=== PATIENT | male | born 1955 | race Caucasian/White ===

== ENCOUNTER → 2016-07-15 | Outpatient (CLI) | payer BC, OTHER | LOC: FCPNEURO 21:00 | PROVIDERS: ATTEND Internal Medicine Sleep Medicine | DX: G47.31 Primary central sleep apnea (principal) ==

== ENCOUNTER → 2016-09-13 | Outpatient (CLI) | payer BC, OTHER | LOC: FCPNEURO 21:00 | PROVIDERS: ATTEND Internal Medicine Sleep Medicine | DX: G47.31 Primary central sleep apnea (principal); G47.33 Obstructive sleep apnea (adult) (pediatric) ==

== ENCOUNTER → 2017-04-08 | Outpatient (CLI) | payer OTHER ==
[~2017-04-08] MED LIST: IOPAMIDOL (ISOVUE 370) 100 ML BTL IV ONE
== END ==
LOC: FIMAGING 13:28
PROVIDERS: ATTEND Family Medicine
DX: I26.99 Other pulmonary embolism without acute cor pulmonale (principal); J98.4 Other disorders of lung
CPT/HCPCS: Q9967

== ENCOUNTER 2017-08-15 14:55 | Emergency (ER) | payer OTHER ==
--- NOTE | 2017-08-15 15:25 | EDPHY ---
General Time Seen by Provider: 08/15/17 15:11 Narrative: CHIEF COMPLAINT: The calf pain, worried about DVT HISTORY OF PRESENT ILLNESS: Patient presents with complaints of right calf pain. This started within the past 24 hr. It is mild to moderate. No worse with exertion. His concern is that it feels the same as when he had a DVT in the same lower extremity in March. No numbness or tingling. No weakness. No warmth or swelling. No for chills. No chest pain or shortness of breath. He had extensive DVT in right lower extremity with bilateral subsegmental PEs in March, for which she still is taking Eliquis. REVIEW OF SYSTEMS: Ten systems reviewed and are negative unless otherwise noted in the HPI PCP: Dr. Yanick Carmen SPECIALISTS: [facility] PAST MEDICAL HISTORY: DVT, bilateral PEs PAST SURGICAL HISTORY: No recent surgeries. TURP procedure in March SOCIAL HISTORY: Never smoker. Lives here independently with his spouse. Works at [employer] FAMILY HISTORY: Noncontributory EXAMINATION General Appearance: Alert, no distress Head: normocephalic, atraumatic Eyes: Pupils equal and round, no conjunctival pallor or injection Cardiovascular: Regular rate. Symmetric DP PT pulses 2+. Neurological: A&O, nonfocal. Strength is symmetric in lower extremities. No footdrop. Skin: Warm and dry, no rash. No petechiae. No purpura. No cellulitis. Extremities: Mild tenderness in the right posterior lower extremity involving the calf only. There is no bony tenderness or lower extremity. Range of motion of the lower extremities symmetric. Good signs of perfusion with soft compartments in all aspects of the right lower extremity. No evidence of DVT. No evidence hematoma. Psychiatric: Mood and affect normal DIFFERENTIAL DIAGNOSES: Including but not limited to DVT, strain, sprain, hematoma, rhabdo MDM: 3:15 p.m. Right lower extremity pain in the calf with concern for DVT from the patient's spouse. Low clinical suspicion for DVT by history, exam and history of Eliquis use. He is neuro intact distally. I do not appreciate any skin changes. I have ordered a DVT study and laboratory studies. 3:30 p.m. dye lab technician is at bedside. 4:15 p.m. Notified by radiologist Dr. Carlos Reid. He reports a negative DVT study of the right lower extremity. I have re-evaluated the patient reassured of this. There are laboratory studies pending but he has no complaints this time. 5:00 p.m. Lab studies reveal mild leukocytopenia without any abnormal components otherwise. Is DVT study is negative. We discussed possibility of other etiologies, and he is reassured there is no DVT. We discussed follow up primary care physician for further workup. They are comfortable this plan and discharged home stable condition. SUPERVISION: Patient was independently examined, but I discussed the case with my secondary supervising physician Dr. Sims - History Smoking Status: Never smoked - Objective Vital Signs: Initial Vital Signs Temperature (C) 98.1 F 08/15/17 14:59 Heart Rate 54 L 08/15/17 14:59 Respiratory Rate 16 08/15/17 14:59 Blood Pressure 107/55 L 08/15/17 14:59 O2 Sat (%) 96 08/15/17 14:59 O2 Delivery Mode Room Air Allergies/Adverse Reactions: levofloxacin [From Levaquin] Allergy (Verified 08/15/17 15:00) Home Medications: Medication Instructions Recorded Armorthyroid 08/15/17 Eliquis 08/15/17 Laboratory Results: Laboratory Results 08/15/17 16:14 08/15/17 16:14 Departure - Departure Disposition: Home, Routine, Self-Care Clinical Impression: Right calf pain Condition: Good Instructions: Leg Pain (ED) Additional Instructions: 1. Contact primary care physician for outpatient care 2. Return here for any worsening pain, redness, warmth, swelling, chest pain or shortness of breath Referrals: YANICK CARMEN [Primary Care Provider] - As per Instructions
[2017-08-15 16:45] LABS: INR 1.16 (0.83-1.16)
[2017-08-15 16:53] LABS: CREATINE KINASE 43 IU/L (0-224)
[2017-08-15 17:18] VITALS: BP 121/67
== END 2017-08-15 17:05 | disposition home or self-care (01) ==
DX: M79.661 Pain in right lower leg (principal)

== ENCOUNTER 2018-01-12 13:08 | Observation (INO) | payer OTHER ==
--- NOTE | 2018-01-12 13:23 | EDPHY ---
HPI/HX/ROS/PE/MDM Narrative: CHIEF COMPLAINT: Chest pain HISTORY OF PRESENT ILLNESS: The patient is an anticoagulated 62 y/o male with a history of DVTs, PE, chronic congenital pancreatitis complaining of intermittent left-sided chest pain for the last two-three days. He has ongoing abdominal pain due to his pancreatitis that can present in different areas of his body including his chest. However, he describes this pain as different from his normal pain. Pain is "sore" and "tight" in quality across his left chest, non-radiating, and 6/10 in severity currently. He cannot identify obvious aggravating or alleviating factors. He also feels nauseated, has low energy, and experiences random occasional shortness of breath; he is unable to say if these symptoms have worsened since noticing this chest pain. He tends to feel diaphoretic at baseline. He had a stress test several years ago that was normal and says he is scheduled for another one next week. He had a prior catheterization that found "nothing they thought would cause issues," though he mentions possible valve problems. He denies history of hypertension, diabetes, hyperlipidemia, pleural effusions, pulmonary hypertension, or family history of heart disease at a young age. He did receive a flu vaccination this season. No fever, chills, chest pain, palpitations, vomiting, diarrhea, urinary complaints, headache, lightheadedness. REVIEW OF SYSTEMS: Aside from elements discussed in the HPI, a comprehensive 10-point review of systems was reviewed and is negative. PAST MEDICAL HISTORY: 1. DVTs, PEs with persistently high d-dimer - Eliquis 2. Congenital pancreatitis with chronic abdominal pain - no medications for this 3. SVT post ablation in [place] 4. Heart catheterization - possible valve issues detected SOCIAL HISTORY: Never smoker. Lives in [place]. . Employed. Prior medical records reviewed including ED visit 08/15/17 for possible DVT. VITAL SIGNS: Reviewed by me GENERAL: Well-developed, well-nourished, resting comfortably in no respiratory distress. HEENT: Atraumatic. Eyes: No icterus, no injection. Mouth: moist mucous membranes. No erythema or lesions. Neck: supple with no adenopathy. LUNGS: Clear to auscultation bilaterally, no wheezes, rhonchi or rales. CARDIAC: Regular rate and rhythm, no rubs, murmurs or gallops. ABDOMEN: Soft, nontender, nondistended, bowel sounds normal. BACK: No CVA tenderness. Mildly diaphoretic on back. EXTREMITIES: No trauma. No edema. Range of motion is normal throughout. NEURO: Alert and oriented, grossly nonfocal. SKIN: Warm and dry, no rash. PSYCHIATRIC: Normal mentation, no agitation. Portions of this note were transcribed by a medical insurance claims processor. I personally performed a history, physical exam, medical decision making, and confirmed accuracy of information the transcribed note. ED Course: This is an anticoagulated 62 y/o male with a history of DVTs, PEs, and chronic pancreatitis who presents with a [id number] history of intermittent left- sided chest pain. Exam is unremarkable apart from mild diaphoresis on back. Plan for standard chest pain work up including IV, labs, EKG, chest x-ray. 4mg IV Zofran and 324mg PO aspirin ordered. The 12 lead EKG was interpreted by myself. Sinus mechanism. See hard copy and/ or "tracemaster" electronic copy for interpretation. D-dimer elevated at 0.86. Plan for chest CTA and abdominal CT with contrast to evaluate for PE and look at pancreas. CTs are negative for acute findings. Spoke with hospitalist service. Dr. Espinosa accepts admission. Reassessed patient and discussed findings. [facility] records accessed via [employer] showed VQ scan, chest CTA, and echocardiogram, but no recent stress test. I recommended admission for this stress test, but he is reluctant to do so. I discussed the risks of leaving and not ruling out cardiac etiology. He will call his and then make a decision. After discussions with the , the patient has elected to be admitted to the hospital. MDM: After history and physical examination, the differential for chest pain was considered, including but not limited to, myocardial ischemia, acute coronary syndrome, pulmonary embolus, chest wall pain, gastric causes, constipation, pleural effusion, pleural inflammation and pulmonary infectious causes. - Data Points Imaging Results: Imaging Impressions Chest X-Ray 01/12/18 13:24 Impression: Possible airways disease. Otherwise negative. Abdomen CT 01/12/18 14:12 Impression: 1. No evidence of abdominopelvic inflammatory mass or ascites. Nayana Corrales was notified of these findings at 3:15 PM on 01/12/2018. Chest/Thorax CTA 01/12/18 14:12 Impression: 1. No evidence of acute pulmonary embolism or thoracic aortic dissection. Previously seen subsegmental pulmonary emboli have resolved. 2. Coronary artery calcification. Nayana Corrales was notified of these findings by telephone at 3:00 PM on 2017 Imaging: Discussed imaging studies w/ call or contact centre team leader Radiologist, I viewed and interpreted images myself Laboratory Results: Laboratory Results 01/12/18 13:15 01/12/18 13:15 01/12/18 01/12/18 01/12/18 13:19 13:15 13:15 WBC RBC Hgb Hct MCV MCH MCHC RDW Plt Count MPV Neut % (Auto) Lymph % (Auto) [place] % (Auto) Eos % (Auto) Baso % (Auto) Nucleat RBC Rel Count Absolute Neuts (auto) Absolute Lymphs (auto) Absolute Monos (auto) Absolute Eos (auto) Absolute Basos (auto) Absolute Nucleated RBC Immature Gran % Immature Gran # PT 14.5 SEC SEC (12.0-15.0) INR 1.11 (0.83-1.16) APTT 33.6 SEC SEC (23.0-38.0) D-Dimer 0.86 ug/mLFEU H ug/mLFEU (0.00-0.50) Sodium 139 mEq/L mEq/L (135-145) Potassium 4.5 mEq/L mEq/L (3.3-5.0) Chloride 100 mEq/L mEq/L (97-110) Carbon Dioxide 31 mEq/l mEq/l (22-31) Anion Gap 8 mEq/L mEq/L (6-14) BUN 22 mg/dL mg/dL (7-23) Creatinine 1.2 mg/dL mg/dL (0.7-1.3) Estimated GFR > 60 Glucose 77 mg/dL mg/dL (70-100) Calcium 9.4 mg/dL mg/dL (8.5-10.4) Total Bilirubin 0.5 mg/dL mg/dL (0.1-1.4) Conjugated Bilirubin 0.1 mg/dL mg/dL (0.0-0.5) Unconjugated Bilirubin 0.4 mg/dL mg/dL (0.0-1.1) AST 33 IU/L IU/L (17-59) ALT 47 IU/L IU/L (21-72) Alkaline Phosphatase 89 IU/L IU/L (38-126) POC Troponin I 0.00 ng/mL ng/mL (0.00-0.08) Total Protein 7.3 g/dL g/dL (6.3-8.2) Albumin 4.3 g/dL g/dL (3.5-5.0) Lipase 441 IU/L H IU/L (23-300) 01/12/18 13:15 WBC 3.38 10^3/uL L 10^3/uL (3.80-9.50) RBC 5.06 10^6/uL 10^6/uL (4.40-6.38) Hgb 16.2 g/dL g/dL (13.7-17.5) Hct 47.2 % % (40.0-51.0) MCV 93.3 fL fL (81.5-99.8) MCH 32.0 pg pg (27.9-34.1) MCHC 34.3 g/dL g/dL (32.4-36.7) RDW 12.5 % % (11.5-15.2) Plt Count 152 10^3/uL 10^3/uL (150-400) MPV 10.3 fL fL (8.7-11.7) Neut % (Auto) 60.6 % % (39.3-74.2) Lymph % (Auto) 24.3 % % (15.0-45.0) [place] % (Auto) 11.8 % % (4.5-13.0) Eos % (Auto) 2.4 % % (0.6-7.6) Baso % (Auto) 0.6 % % (0.3-1.7) Nucleat RBC Rel Count 0.0 % % (0.0-0.2) Absolute Neuts (auto) 2.05 10^3/uL 10^3/uL (1.70-6.50) Absolute Lymphs (auto) 0.82 10^3/uL L 10^3/uL (1.00-3.00) Absolute Monos (auto) 0.40 10^3/uL 10^3/uL (0.30-0.80) Absolute Eos (auto) 0.08 10^3/uL 10^3/uL (0.03-0.40) Absolute Basos (auto) 0.02 10^3/uL 10^3/uL (0.02-0.10) Absolute Nucleated RBC 0.00 10^3/uL 10^3/uL (0-0.01) Immature Gran % 0.3 % % (0.0-1.1) Immature Gran # 0.01 10^3/uL 10^3/uL (0.00-0.10) PT INR APTT D-Dimer Sodium Potassium Chloride Carbon Dioxide Anion Gap BUN Creatinine Estimated GFR Glucose Calcium Total Bilirubin Conjugated Bilirubin Unconjugated Bilirubin AST ALT Alkaline Phosphatase POC Troponin I Total Protein Albumin Lipase Medications Given: Discontinued Medications Aspirin (Aspirin) 324 mg PO EDNOW ONE Stop: 01/12/18 13:25 Last Admin: 01/12/18 13:29 Dose: 324 mg Ondansetron HCl (Zofran) 4 mg IVP EDNOW ONE Stop: 01/12/18 13:25 Last Admin: 01/12/18 13:30 Dose: 4 mg Point of Care Test Results: Chemistry 01/12/18 13:19 POC Troponin I 0.00 ng/mL ng/mL (0.00-0.08) General Initial Vital Signs: Initial Vital Signs Temperature (C) 36.7 C 01/12/18 13:11 Heart Rate 70 01/12/18 13:11 Respiratory Rate 16 01/12/18 13:11 Blood Pressure 145/81 H 01/12/18 13:11 O2 Sat (%) 96 01/12/18 13:11 O2 Delivery Mode Room Air Allergies/Adverse Reactions: lactose Allergy (Mild, Verified 01/12/18 16:10) levofloxacin [From Levaquin] Allergy (Verified 08/15/17 15:00) Home Medications: Medication Instructions Recorded Apixaban [Eliquis] 5 mg PO BID 01/12/18 Herbals/Supplements -Info Only 1 ea PO BID 01/12/18 Thyroid [[place] Thyroid 60 MG (*)] 60 mg PO DAILY10 01/12/18 Departure - Departure Disposition: [facility] Clinical Impression: Chest pain Qualifiers: Chest pain type: other chest pain Qualified Code(s): R07.89 - Other chest pain Condition: Fair Report Scribed for: Nayana Corrales Report Scribed by: Marylou Estrella Date of Report: 01/12/18 Time of Report: 13:53
[2018-01-12] MEDS ORDERED: ASPIRIN 81 MG CHEWABLE TAB PO ONE (13:24)
[2018-01-12] MEDS ORDERED: ONDANSETRON 4 MG/2 ML VIAL IVP ONE (13:24)
[2018-01-12 13:42] LABS: PLATELET COUNT 152 10^3/uL (150-400)
[2018-01-12 13:59] LABS: INR 1.11 (0.83-1.16); PROTIME(PATIENT) 14.5 SEC (12.0-15.0)
[2018-01-12] MEDS ORDERED: IOPAMIDOL (ISOVUE 370) 100 ML BTL IV ONE (14:23)
[2018-01-12] MEDS ORDERED: oxyCODONE IR 5 MG TAB PO PRN (16:15)
[2018-01-12] MEDS ORDERED: ACETAMINOPHEN 325 MG TAB PO PRN (16:15)
[2018-01-12] MEDS ORDERED: ONDANSETRON 4 MG/2 ML VIAL IVP PRN (16:15)
[2018-01-12] MEDS ORDERED: PROMETHAZINE HCL 25 MG/ML INJ IVP PRN (16:15)
[2018-01-12] MEDS ORDERED: HYDROCODONE/APAP 5/325 TAB PO PRN (16:15)
[2018-01-12] MEDS ORDERED: ONDANSETRON DISINTEGRATING 4 MG TAB PO PRN (16:15)
[2018-01-12] MEDS ORDERED: ALBUTEROL 3 ML DEYVIAL IH PRN (16:15)
[2018-01-12] MEDS ORDERED: NITROGLYCERIN 0.4 MG BTL SL PRN (16:15)
--- NOTE | 2018-01-12 17:35 | PDGENHP ---
History and Physical - Chief Complaint chest pain - History of Present Illness 62 yo M with PMH that includes chronic congenital pancreatitis as well as relatively recent dx of DVT/PE presenting with complaints of several days of left sided chest pain. Patient notes that when he gets bouts of pancreatitis he will often have pain in other places besides his abdomen but that it is not generally like this. He notes that he has seen his PCP for this and is scheduled for a stress test at [facility] next week, he states that there was some discussion of a heart catheterization but decision was made to start with stress test. He notes he has had increased fatigue and intermittent sob as well. He currently notes that the pain is still present but very mild, located over his left pectoral region and achy. He did have a workup at [facility] in mid November at which time a VQ scan, chest CTA and echocardiogram were performed. History Information - Allergies/Home Medication List Allergies/Adverse Reactions: lactose Allergy (Mild, Verified 01/12/18 16:10) levofloxacin [From Levaquin] Allergy (Verified 08/15/17 15:00) Home Medications: Apixaban [Eliquis] 5 mg PO BID 01/12/18 [Last Taken 01/12/18 AM DOSE ONLY] Herbals/Supplements -Info Only 1 ea PO BID 01/12/18 [Last Taken 01/12/18 am only ] Thyroid [[place] Thyroid 60 MG (*)] 60 mg PO DAILY10 01/12/18 [Last Taken ] I have personally reviewed and updated: family history, medical history, social history, surgical history - Past Medical History DVT, pulmonary embolism, SVT Additional medical history: chronic congential pancreatitis - Surgical History Reports: no pertinent surgical hx - Family History Positive for: non-pertinent - Social History Smoking Status: Never smoked Alcohol Use: Rarely Drug Use: None Review of Systems Review of Systems: ROS: 10pt was reviewed & negative except for what was stated in HPI & below Physical Exam Physical Exam: Temp Pulse Resp BP Pulse Ox 36.5 C 53 L 18 113/76 97 01/12/18 16:15 01/12/18 16:15 01/12/18 16:15 01/12/18 16:15 01/12/18 16:15 Constitutional: no apparent distress, appears nourished Eyes: PERRL, anicteric sclera Ears, Nose, Mouth, Throat: moist mucous membranes, hearing normal Cardiovascular: regular rate and rhythym, no murmur, rub, or gallop, No edema Respiratory: no respiratory distress, no rales or rhonchi, clear to auscultation Gastrointestinal: normoactive bowel sounds, soft, non-tender abdomen, no palpable masses Genitourinary: no bladder tenderness Skin: warm, normal color Musculoskeletal: full muscle strength, no muscle tenderness Neurologic: AAOx3 Psychiatric: interacting appropriately, not anxious, not encephalopathic Lab Data & Imaging Review 01/12/18 13:15 01/12/18 13:15 WBC 3.38 10^3/uL (3.80-9.50) L 01/12/18 13:15 RBC 5.06 10^6/uL (4.40-6.38) 01/12/18 13:15 Hgb 16.2 g/dL (13.7-17.5) 01/12/18 13:15 Hct 47.2 % (40.0-51.0) 01/12/18 13:15 MCV 93.3 fL (81.5-99.8) 01/12/18 13:15 MCH 32.0 pg (27.9-34.1) 01/12/18 13:15 MCHC 34.3 g/dL (32.4-36.7) 01/12/18 13:15 RDW 12.5 % (11.5-15.2) 01/12/18 13:15 Plt Count 152 10^3/uL (150-400) 01/12/18 13:15 MPV 10.3 fL (8.7-11.7) 01/12/18 13:15 Neut % (Auto) 60.6 % (39.3-74.2) 01/12/18 13:15 Lymph % (Auto) 24.3 % (15.0-45.0) 01/12/18 13:15 [place] % (Auto) 11.8 % (4.5-13.0) 01/12/18 13:15 Eos % (Auto) 2.4 % (0.6-7.6) 01/12/18 13:15 Baso % (Auto) 0.6 % (0.3-1.7) 01/12/18 13:15 Nucleat RBC Rel Count 0.0 % (0.0-0.2) 01/12/18 13:15 Absolute Neuts (auto) 2.05 10^3/uL (1.70-6.50) 01/12/18 13:15 Absolute Lymphs (auto) 0.82 10^3/uL (1.00-3.00) L 01/12/18 13:15 Absolute Monos (auto) 0.40 10^3/uL (0.30-0.80) 01/12/18 13:15 Absolute Eos (auto) 0.08 10^3/uL (0.03-0.40) 01/12/18 13:15 Absolute Basos (auto) 0.02 10^3/uL (0.02-0.10) 01/12/18 13:15 Absolute Nucleated RBC 0.00 10^3/uL (0-0.01) 01/12/18 13:15 Immature Gran % 0.3 % (0.0-1.1) 01/12/18 13:15 Immature Gran # 0.01 10^3/uL (0.00-0.10) 01/12/18 13:15 PT 14.5 SEC (12.0-15.0) 01/12/18 13:15 INR 1.11 (0.83-1.16) 01/12/18 13:15 APTT 33.6 SEC (23.0-38.0) 01/12/18 13:15 D-Dimer 0.86 ug/mLFEU (0.00-0.50) H 01/12/18 13:15 Sodium 139 mEq/L (135-145) 01/12/18 13:15 Potassium 4.5 mEq/L (3.3-5.0) 01/12/18 13:15 Chloride 100 mEq/L (97-110) 01/12/18 13:15 Carbon Dioxide 31 mEq/l (22-31) 01/12/18 13:15 Anion Gap 8 mEq/L (6-14) 01/12/18 13:15 BUN 22 mg/dL (7-23) 01/12/18 13:15 Creatinine 1.2 mg/dL (0.7-1.3) 01/12/18 13:15 Estimated GFR > 60 01/12/18 13:15 Glucose 77 mg/dL (70-100) 01/12/18 13:15 Calcium 9.4 mg/dL (8.5-10.4) 01/12/18 13:15 Total Bilirubin 0.5 mg/dL (0.1-1.4) 01/12/18 13:15 Conjugated Bilirubin 0.1 mg/dL (0.0-0.5) 01/12/18 13:15 Unconjugated Bilirubin 0.4 mg/dL (0.0-1.1) 01/12/18 13:15 AST 33 IU/L (17-59) 01/12/18 13:15 ALT 47 IU/L (21-72) 01/12/18 13:15 Alkaline Phosphatase 89 IU/L (38-126) 01/12/18 13:15 POC Troponin I 0.00 ng/mL (0.00-0.08) 01/12/18 13:19 Total Protein 7.3 g/dL (6.3-8.2) 01/12/18 13:15 Albumin 4.3 g/dL (3.5-5.0) 01/12/18 13:15 Lipase 441 IU/L (23-300) H 01/12/18 13:15 Visualized and Interpreted Chest x-ray results: Yes Chest X-Ray results: no infiltrate Visualized and Interpreted imaging results: Yes Interpretation: chest CTA: no PE, no dissection, coronary artery calcifications Visualized and Interpreted EKG results: Yes EKG Interpretation: Positive for: normal sinsus rhythm Assessment & Plan Assessment: Chest pain (Acute) 62 yo M with PMH of chronic pancreatitis presenting with chest pain # chest pain: with heart score of 2 and atypical history however patient with recurrent issues that have been difficult to distinguish from his chronic pancreatitis. He has a stress test scheduled at [facility] for next week but will plan to proceed with that in house in the morning so long as overnight w/u including tele monitoring, serial trop and serial ecg remain normal. # chronic pancreatitis: due to congenital abnormality reportedly, currently has a lipase of 440 and with hx of chronic pancreatitis this could be sign of an acute on chronic flare although patient notes that his current sxs are different than his usual sxs. Abd CT performed and comments that the pancreas appears normal, no comment on calcifications. # DVT/PE: remains on anticoagulation currently, CTA performed today showing no new PE and resolution of prior subsegmental PE # observation status Patient new to my care. Care plan reviewed with ER doctor including plans for stress test. Old records reviewed including records from [facility] on [address].
--- NOTE | 2018-01-12 19:56 | CPEKG ---
Test Reason : OPEN Blood Pressure : / mmHG Vent. Rate : 066 BPM Atrial Rate : 066 BPM P-R Int : 148 ms QRS Dur : 101 ms QT Int : 401 ms P-R-T Axes : 069 050 054 degrees QTc Int : 421 ms Sinus rhythm Confirmed by Nayana Corrales ([id number]) on 01/12/2018 7:55:29 PM Referred By: Confirmed By:Nayana Corrales
[2018-01-12] MEDS: APIXABAN 5 MG TAB PO SCH (20:30)
--- NOTE | 2018-01-13 06:31 | CPEKG ---
Test Reason : OPEN Blood Pressure : / mmHG Vent. Rate : 060 BPM Atrial Rate : 060 BPM P-R Int : 155 ms QRS Dur : 097 ms QT Int : 418 ms P-R-T Axes : 076 053 052 degrees QTc Int : 418 ms Sinus rhythm Confirmed by Christina Pablo ([id number]) on 01/13/2018 6:30:53 AM Referred By: Confirmed By:Christina Pablo
[2018-01-13] MEDS: APIXABAN 5 MG TAB PO SCH (08:32)
[2018-01-13] MEDS ORDERED: REGADENOSON 0.4 MG/5 ML SYR IVP ONE (08:57)
[2018-01-13] MEDS ORDERED: ASPIRIN 325 MG TAB PO SCH (09:00)
[2018-01-13] MEDS ORDERED: THYROID 60 MG TAB PO SCH (10:00)
[2018-01-13 11:45] VITALS: BP 115/69
--- NOTE | 2018-01-13 13:02 | PDDCSUM ---
Discharge Summary Discharge Summary: Date of Admission: 01/12/2018 Date of Discharge: 01/13/2018 Studies: 1. Exercise stress with MPI 2. CTA chest 3. CT abdomen/pelvis Discharge Diagnoses: 1. Non-cardiac chest pain 2. History of pancreatic divisum, mildly elevated lipase 3. History of DVT/PE on anticoagulation 4. Hypothyroidism Brief Hospital Course: 62 yo M with PMH of pancreatic divisum and chronic pancreatitis (per his report ) presents with episode of atypical chest pain. Ruled out for ACS and underwent exercise stress test with MPI which was completely normal. Given his past history, a CTA of his chest was also obtained which was negative for acute PE; additionally his prior PE appears to have resolved. His chest pain was likely GI related. In terms of his chronic pancreas issues, his lipase was mildly elevated at 441 however he had no pancreatic inflammation or signs of chronic pancreatitis on CT. Clinically, he did not have pancreatitis and was tolerating PO without difficulty. His apixaban was continued for his DVT/PE history, which occurred 03/2017 and may have been provoked in setting of surgery. Will defer to his primary providers re: duration of anticoagulation. Medications: Please refer to EMR for complete list. No changes were made this admission. Follow Up Plan: 1. Follow up with PCP and balance wheel facer at [facility] Physical Exam: Vitals and telemetry reviewed, normotensive and without arrhythmia. Alert and oriented, RRR without m/r/g, lungs clear, abdomen soft, no leg edema or JVD.
--- NOTE | 2018-01-13 13:50 | ASDISCHSUM ---
Discharge Information Plan Status:Home with No Needs Medically Cleared to Leave: Discharge Date:01/13/2018 01:49 PM CM D/C Disposition:Home, Routine, Self-Care ADT D/C Disposition:Home, Routine, Self-Care Projected Discharge Date:01/13/2018 01:49 PM Transportation at D/C:Family Discharge Delay Reason: Follow-Up Date:01/13/2018 01:49 PM Discharge Slot: Final Diagnosis: Placement Information Patient Contact Information Contact Name:LEYLA Relationship: Address:[address] [place] Work Phone: Jose Alfredo:[place] Quick Phone: [facility]/Zip Code:[place] [phone] Email: Financial Information Financial Class:BCOP Primary Plan Desc:[employer] SMITH PPO Primary Plan Number:[id number] Secondary Plan Desc: Secondary Plan Number: Assessment Information LACE LACE Length of stay for Answers: Less than 1 day current admission Acuity / Level of Answers: No Care: Did the patient have an inpatient admission? Comorbidities - select Answers: Other Notes: Hx of DVT/PE; SVT all that apply # of Emergency department Answers: 1-2 visits in the last 6 months Score: 2 Date Signed: 01/13/2018 01:48 PM Electronically Signed By:Lizbeth Egan Intervention Information
--- NOTE | 2018-01-13 14:39 | CPR ---
DATE OF PROCEDURE: 01/13/2018 PROCEDURE: Treadmill nuclear stress test. REASON FOR TEST: Chest pain. Resting EKG shows a regular sinus rhythm with a rate of 61, late V2, V3 progression. No ischemic janelle nges noted. Resting blood pressure 112/70. STRESS PORTION: He was exercised according to the Gm protocol for a total of 11 minutes. Peak he art rate 142, peak blood pressure 166/74. MET level reached 11.4. Cardiolite was injected at peak e xercise, followed by saline flush. He had mild chest discomfort at peak exercise. EKG remained stab le. RECOVERY: He did spontaneously recover. Resting recovery blood pressure 118/80, resting heart rate 94. No ischemic changes noted. At this time, he currently is stable for nuclear imaging. /[id number]/MODL
== END 2018-01-13 13:49 | disposition home or self-care (01) ==
LOC: F2W 16:12
PROVIDERS: ADMIT Internal Medicine; ATTEND Internal Medicine
DX: R07.89 Other chest pain (principal); Q45.3 Other congenital malformations of pancreas and pancreatic duct; K86.1 Other chronic pancreatitis; I82.409 Acute embolism and thrombosis of unspecified deep veins of unspecified lower extremity; I26.99 Other pulmonary embolism without acute cor pulmonale; E03.9 Hypothyroidism, unspecified; Z79.01 Long term (current) use of anticoagulants
CPT/HCPCS: 71046; 71275; 74177; 78452; 93005; 93017; 96374; 99285; A9500; G0378; 84484-PO; J2405; J2785; Q9967